=== PATIENT | female | born 2005 | race Caucasian/White ===

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

== ENCOUNTER → 2023-01-04 15:14 | Outpatient (BNVA) | payer MEDICAID, SELFPAY ==
[2021-10-31 15:38] VITALS: BP 97/46; BMI 22.7
== END ==
PROVIDERS: PCP Family Medicine Adult Medicine; Visit Provider Family Medicine Adult Medicine
DX: C71.4 Malignant neoplasm of occipital lobe (principal); C71.9 Malignant neoplasm of brain, unspecified; Z98.890 Other specified postprocedural states
CPT/HCPCS: 80053; 85025; 86360

== ENCOUNTER → 2023-02-08 14:20 | Outpatient (BNVA) | payer MEDICAID, SELFPAY ==
[2021-10-31 15:38] VITALS: BP 97/46; BMI 22.7
== END ==
PROVIDERS: PCP Family Medicine Adult Medicine; Visit Provider Family Medicine Adult Medicine
DX: R56.1 Post traumatic seizures (principal); Z98.890 Other specified postprocedural states; E10.9 Type 1 diabetes mellitus without complications
CPT/HCPCS: 80053; 85025; 86360

== ENCOUNTER → 2023-04-13 13:23 | Outpatient (BNVA) | payer MEDICAID, SELFPAY ==
[2021-10-31 15:38] VITALS: BP 97/46; BMI 22.7
== END ==
PROVIDERS: PCP Family Medicine Adult Medicine; Visit Provider Family Medicine Adult Medicine
DX: C71.4 Malignant neoplasm of occipital lobe (principal); C71.9 Malignant neoplasm of brain, unspecified
CPT/HCPCS: 80053; 85025; 86360

== ENCOUNTER → 2023-05-10 11:41 | Outpatient (BNVA) | payer SELFPAY ==
[2021-10-31 15:38] VITALS: BP 97/46; BMI 22.7
== END ==
PROVIDERS: PCP Family Medicine Adult Medicine; Visit Provider Family Medicine Adult Medicine
DX: C71.4 Malignant neoplasm of occipital lobe (principal)
CPT/HCPCS: 80053; 85025; 86360

== ENCOUNTER → 2023-08-29 13:38 | Outpatient (BNVA) | payer OTHER, SELFPAY ==
[2021-10-31 15:38] VITALS: BP 97/46; BMI 22.7
== END ==
PROVIDERS: PCP Family Medicine Adult Medicine; Visit Provider Psychiatry & Neurology Psychiatry
DX: F32.5 Major depressive disorder, single episode, in full remission (principal)
CPT/HCPCS: 80061; 83036

== ENCOUNTER 2023-11-27 20:23 | Emergency (ER) | payer MEDICAID, SELFPAY ==
[2023-09-14 16:06] VITALS: BP 105/66; BMI 29.2
[2023-11-27 20:33] VITALS: BP 104/64; PULSE 72; RESP 16; TEMP 36.7; O2SAT 98
--- NOTE | 2023-11-27 21:28 | CTR_ITS ---
PROCEDURE INFORMATION: Exam: CT Head Without Contrast Exam date and time: 11/27/2023 10:01 PM Age: 18 years old Clinical indication: Pain; Headache; Prior surgery; Surgery date: 6+ months; Surgery type: Brain; Additional info: Headache, HX of brain tumor with surgery TECHNIQUE: Imaging protocol: Computed tomography of the head without contrast. Radiation optimization: All CT scans at this facility use at least one of these dose optimization techniques: automated exposure control; mA and/or kV adjustment per patient size (includes targeted exams where dose is matched to clinical indication); or iterative reconstruction. COMPARISON: CT head wo con* [id number] 07/24/2022 10:39 PM RADIATION DOSE METRICS: Total DLP (mGy-cm): 986 FINDINGS: Brain: Left parieto-occipital craniotomy with underlying focal occipital encephalomalacia. No evidence of intra-axial or extra-axial hemorrhage. No mass effect or midline shift. Fisher-white differentiation is otherwise maintained. Basilar cisterns are patent. Cerebral ventricles: No hydrocephalus. Paranasal sinuses: The visualized paranasal sinuses are well aerated. Mastoid air cells: The visualized mastoids and middle ears are clear. Bones: Left parieto-occipital craniotomy. Calvarium is otherwise intact. No evidence of acute fracture. Soft tissues: No gross soft tissue abnormality. CT/CT head wo con* [id number] IMPRESSION: 1. No acute intracranial abnormality.
--- NOTE | 2023-11-27 21:40 | ED_ITS ---
HPI - Headache 2 General: Chief Complaint: Headache Stated Complaint: brain cancer, swelling on back and pain Time Seen by Provider: 11/27/23 21:08 History of Present Illness: Patient presents to the ER with a headache. Patient has a spot on the back of her head where they had a performed a craniotomy when she had brain surgery due to a brain tumor. The spot is usually indented and now it is protuberant. Is very tender to the touch and patient says this started yesterday. Patient also been feeling more tired than normal. Patient does not recall any type of injury. Patient has a seizure disorder and is on medication. Patient is in the observation stage. Patient's last MRI was approximately 3 months ago. Patient goes and sees the neurosurgeons in [place]. Patient has no other complaints at this time. 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, post-traumatic Intractable vomiting with nausea Insomnia Asthma Psychiatric care Premenstrual dysphoric disorder Major depressive disorder, single episode, in full remission Viral URI Trichotillomania Mild intellectual disability Surgical History Status post brain surgery 07/17/2022 at [facility] MRI showed a 5.7 x 4.4 x 5.4 excision, seizure before and after surgery 7 days, 6 wks of CCRT treatment completed Family History Grandfather Hypertension Hyperlipidemia Grandmother Diabetes Cancer Other CAD (coronary artery disease) Dementia Lung disease Social History Smoking and tobacco/nicotine status: never used tobacco/nicotine Second hand smoke exposure: Yes Alcohol intake: never Substance/Drug Use: never Adopted: No Caregiver/support person: No Lives independently: Yes Household members: family Housing: Manufactured/Mobile home Highest education level completed: 10th Grade Education level details: Homeschooled mother states she is only at the 3rd grade level service: No Current occupational status: student Current occupational exposures/hazards: No Pets and animals: Yes Pets & animals: cat(s), dog(s) and snake(s) Pets & animal details: nemesio serrano Leisure activites: art, music and other Leisure activities details: watch TV Sexually active: No Do you think of yourself as: Straight/Heterosexual Current gender identity: Female Lupe/Rastafarian: Mandaen Special lupe needs: No Agree to transfusion: Yes Physical Exam 2 Const: COMMON NORMALS: no acute distress, average body habitus, no limitations, healthy appearing, alert and well nourished HENMT: COMMON NORMALS: normocephalic; head/scalp not atraumatic (Postsurgical incision posterior scalp swollen area very tender to touch.) HEAD & SCALP: normocephalic; not atraumatic (Postsurgical incision posterior scalp swollen area very tender to touch.) Eye: COMMON NORMALS: Equal, round and reactive pupils present, EOMs intact bilaterally, conjunctivae normal and no scleral icterus CONJUNCTIVA: Yes conjunctivae normal PUPIL: Yes Equal, round and reactive pupils present Neck/C-Spine: COMMON NORMALS: full ROM, no lymphadenopathy, supple, no meningeal signs, no JVD and Thyroid normal THYROID: Thyroid normal Chest: COMMONS NORMALS: normal inspection of the chest and normal palpation of entire chest wall Resp: COMMON NORMALS: normal respiratory effort, No retractions, No use of accessory muscles and clear to auscultation bilaterally AUSCULTATION: clear to auscultation bilaterally Cardio: COMMON NORMALS: no JVD, regular rate, regular rhythm, S1 normal heart sound present, S2 normal heart sound present, No gallops present (Cardio), No clicks present (Cardio), No murmurs present (Cardio) and No rub (Cardio) R ATE: regular rate RHYTHM: regular rhythm HEART SOUNDS: S1 normal heart sound present and S2 normal heart sound present GI: COMMON NORMALS: Normal to inspection, nondistended, normoactive bowel sounds present, Soft to palpation, non-tender, No hepatosplenomegaly present and no masses PALPATION: Yes Soft to palpation and Yes No hepatosplenomegaly present Neuro: SENSORIUM/ORIENTATION: Yes alert MENINGEAL SIGNS: Yes no meningeal signs Course 2 Vital Signs: Vital signs: Vital Signs Temperature 98.0 F 11/27/23 20:33 Pulse Rate 67 07/17/24 00:01 Respiratory Rate 16 11/28/23 00:01 Blood Pressure 116/71 11/28/23 00:01 Pulse Oximetry 96 11/28/23 00:01 Oxygen Delivery Me thod Room Air 11/27/23 20:33 MDM - Headache Medical Decision Making Patient lab work included CBC CMP urinalysis CRP all which essentially benign. Patient head CT showed no acute intracranial abnormality. Patient was given 1000 g of Tylenol, and then 30 mg Toradol, for her headache which resolved. Patient will be discharged home. Medical Records I reviewed the patient's medical records. Lab Data I reviewed the patient's lab results. 11/27/23 21:42 11/27/23 21:[address] 11/27/23 21:28 IMPRESSION: 1. No acute intracranial abnormality. Laboratory Results WBC 7.87 10^3/uL (4.5-13.0) 11/27/23 21:42 RBC 3.99 10^6/uL (3.85-5.65) 11/27/23 21:42 Hgb 12.20 g/dL (12.4-14.8) L 11/27/23 21:42 Hct 36.1 % (36-47) 11/27/23 21:42 MCV 90.5 fl (85-98) 11/27/23 21:42 MCH 30.6 pg (27-33) 11/27/23 21:42 MCHC 33.8 g/dL (30-55) 11/27/23 21:42 RDW 12.3 % (12.1-15.1) 11/27/23 21:42 Plt Count 171 10^3/cmm (157-399) 11/27/23 21:42 MPV 10.4 fL (7.4-10.4) 11/27/23 21:42 Neut % (Auto) 73.6 % 11/27/23 21:42 Lymph % (Auto) 14.6 % 11/27/23 21:42 [place] % (Auto) 7.8 % 11/27/23 21:42 Eos % (Auto) 3.2 % 11/27/23 21:42 Baso % (Auto) 0.5 % 11/27/23 21:42 Neut # (Auto) 5.80 10^3/uL (1.8-8.0) 11/27/23 21:42 Lymph # (Auto) 1.2 10^3/uL (1.5-6.5) L 11/27/23 21:42 [place] # (Auto) 0.6 10^3/uL (0.2-0.9) 11/27/23 21:42 Eos # (Auto) 0.3 10^3/uL (0.0-0.8) 11/27/23 21:42 Baso # (Auto) 0.0 10^3/uL (0.0-0.1) 11/27/23 21:42 Nucleated RBC % (auto) 0 % 11/27/23 21:42 Nucleated RBCs # 0.0 /100WBC 11/27/23 21:42 Sodium 138 mmol/L (136-145) 11/27/23 21:42 Potassium 3.8 mmol/L (3.5-5.1) 11/27/23 21:42 Chloride 105 mmol/L (98-107) 11/27/23 21:42 Carbon Dioxide 22 mmol/L (22-29) 11/27/23 21:42 Anion Gap 14.8 (5-19) 11/27/23 21:42 BUN 17 mg/dL (6-20) 11/27/23 21:42 Creatinine 0.7 mg/dL (0.5-0.9) 11/27/23 21:42 GFR Calculation 106.7 mL/min (90-130) 11/27/23 21:42 Glucose 83 mg/dL (65-115) 11/27/23 21:42 Calculated Osmolality 287 mOsm/kg (285-295) 11/27/23 21:42 Calcium 8.9 mg/dL (8.5-10.5) 11/27/23 21:42 Total Bilirubin 0.2 mg/dL (0.15-1.2) 11/27/23 21:42 AST 13 U/L (0-32) 11/27/23 21:42 ALT 10 U/L (0-33) 11/27/23 21:42 Alkaline Phosphatase 81 U/L (35-105) 11/27/23 21:42 C-Reactive Protein 3.0 mg/L (0.0-4.9) 11/27/23 21:42 Total Protein 7.1 g/dL (6.6-8.7) 11/27/23 21:42 Albumin 4.0 g/dL (3.5-5.2) 11/27/23 21:42 Globulin 3.1 g/dL (1.3-4.6) 11/27/23 21:42 Urine Color Yellow (Yellow) 11/27/23 21:42 Urine Appearance Slightly cloudy (CLEAR) 11/27/23 21:42 Urine pH 8 (5-7) H 11/27/23 21:42 Ur Specific [place] 1.015 (1.005-1.030) 11/27/23 21:42 Urine Protein Neg (Negative) 11/27/23 21:42 Urine Glucose (UA) Norm (Normal) 11/27/23 21:42 Urine Ketones Negative (Negative) 11/27/23 21:42 Urine Blood Neg (Negative) 11/27/23 21:42 Urine Nitrate Negative (Negative) 11/27/23 21:42 Urine Bilirubin Neg (Negative) 11/27/23 21:42 Urine Urobilinogen Neg mg/dL (Negative) 11/27/23 21:42 Ur Leukocyte Esterase Negative (Negative) 11/27/23 21:42 Urine RBC 0-4 /hpf (0-2) H 11/27/23 21:42 Urine WBC 0-4 /hpf (0-5) H 11/27/23 21:42 Ur Squamous Epith Cells 5-10 /hpf (0-5) H 11/27/23 21:42 Amorphous Sediment Not Reportable 11/27/23 21:42 Urine Bacteria 1+ /hpf (NONE) H 11/27/23 21:42 All radiology interpretation(s) finalized by discharge Discharge Plan Discharge Patient Disposition: Home Clinical Impression: Headache Qualifiers: Headache type: unspecified Headache chronicity pattern: acute headache I ntractability: not intractable Qualified Code(s): R51.9 - Headache, unspecified Condition: Stable Prescriptions: No Action acetaminophen [Tylenol Extra Strength] 500 mg tablet 500 mg PO Q6H PRN fluticasone propionate 110 mcg/actuation HFA aerosol inhaler 2 puff inhalation BID lamotrigine 200 mg tablet 200 mg PO DAILY alprazolam [Xanax] 0.25 mg tablet 0.25 mg PO DAILY PRN (Reason: anxiety) Qty: 6 0RF Rx Instructions: Take prior to getting MRI. sertraline 100 mg tablet 150 mg PO QAM Qty: 45 11RF trazodone 100 mg tablet 200 mg PO .qhs Qty: 60 11RF diphenhydramine HCl [Benadryl] 25 mg capsule 25 mg PO TID PRN (Reason: allergic reaction) Qty: 90 2RF All Day Allergy (cetirizine) 10 mg capsule 10 mg PO DAILY Qty: 90 0RF melatonin 5 mg tablet, IR and ER, biphasic 10 mg PO .qhs PRN (Reason: insomnia) Qty: 180 1RF ondansetron 4 mg tablet,disintegrating 4 mg PO Q8H PRN (Reason: nausea and vomiting) Qty: 12 0RF ProAir HFA 90 mcg/actuation Hfa Aerosol Inhaler 2 puff INHALATION QID PRN (Reason: Shortness Of Breath) Discharge Orders: Discharge ED (Routine); Ordered 11/28/23 Ordered By: Santana Jose Referrals: Matheus Conde MD [Primary Care Provider] - 1 week Patient Instructions: Acute Headache (ED) Activity Restrictions/Additional Instructions: Your lab work as well as your head CT was essentially benign not showing any acute cause for your headache. Please follow-up with your family practice physician for further evaluation and treatment as needed. If your headache returns or worsens please feel free to return to the ER. Coding Level of Care Code ED Plumber'S Helper for Erik Garcia
[2023-11-27] MEDS: acetaminophen 500 mg Tablet 1000 MG PO (21:48)
[2023-11-27] MEDS: ondansetron 2 mg/ML SDV 2 mL 4 MG IVP (21:48)
[2023-11-27 21:50] LABS: Basophils % 0.5 %; Eosinophils # 0.3 10^3/uL (0.0-0.8); Eosinophils % 3.2 %; Hematocrit 36.1 % (36-47); Lymphocytes # 1.2 10^3/uL (1.5-6.5); Lymphocytes % 14.6 %; Mean Corpuscular HGB Conc 33.8 g/dL (30-55); Mean Corpuscular Hemoglobin 30.6 pg (27-33); Mean Corpuscular Volume 90.5 fl (85-98); Mean Platelet Volume 10.4 fL (7.4-10.4); Monocytes # 0.6 10^3/uL (0.2-0.9); Monocytes % 7.8 %; Neutrophils % 73.6 %; Nucleated Red Blood Cells % 0 %; Platelet Count 171 10^3/cmm (157-399); Red Blood Count 3.99 10^6/uL (3.85-5.65); Red Cell Distribution Width 12.3 % (12.1-15.1); White Blood Count 7.87 10^3/uL (4.5-13.0)
[2023-11-27 22:08] LABS: Alanine Aminotransferase 10 U/L (0-33); Alkaline Phosphatase 81 U/L (35-105); Anion Gap 14.8 (5-19); Aspartate Amino Transferase 13 U/L (0-32); Blood Urea Nitrogen 17 mg/dL (6-20); Calcium 8.9 mg/dL (8.5-10.5); Carbon Dioxide 22 mmol/L (22-29); Chloride 105 mmol/L (98-107); Creatinine Clr Calc Pharmacy 121.6455; Globulin 3.1 g/dL (1.3-4.6); Glomerular Filtration Rate 106.7 mL/min (90-130); Glucose 83 mg/dL (65-115); Osmolality Calculated 287 mOsm/kg (285-295); Potassium 3.8 mmol/L (3.5-5.1); Sodium 138 mmol/L (136-145); Total Bilirubin 0.2 mg/dL (0.15-1.2); Total Protein 7.1 g/dL (6.6-8.7)
[2023-11-27 22:16] LABS: Add Urine Culture? No; Add Urine Microscopic? YES; Bacteria Urine 1+ /hpf; Bilirubin Urine Neg (Negative); Blood Urine Neg (Negative); Glucose Urine UA Norm (Normal); Ketones Urine Negative (Negative); Leukocyte Esterase Urine Negative (Negative); Nitrate Urine Negative (Negative); Protein Urine Neg (Negative); RBC Urine 0-4 /hpf (0-2); Specific Gravity, Urine 1.015 (1.005-1.030); Urine Appearance Slightly Cloudy (CLEAR); Urine Color Yellow (Yellow); Urobilinogen Urine Neg (Negative); WBC Urine 0-4 /hpf (0-5); pH Urine 8 (5-7)
[2023-11-27 22:26] VITALS: BP 102/61; PULSE 61; RESP 16; O2SAT 96
[2023-11-27 23:00] VITALS: BP 110/64; PULSE 65; RESP 16; O2SAT 95
[2023-11-27] MEDS: ketorolac 30 mg/mL INJ IVP (23:18)
[2023-11-27 23:30] VITALS: BP 115/63; PULSE 59; RESP 16; O2SAT 95
[2023-11-28 00:01] VITALS: BP 116/71; PULSE 67; RESP 16; O2SAT 96
== END 2023-11-28 01:09 | disposition home or self-care (01) ==
PROVIDERS: Emergency Provider Emergency Medicine; PCP Family Medicine Adult Medicine
DX: R51.9 Headache, unspecified (principal); Z79.899 Other long term (current) drug therapy
CPT/HCPCS: 70450; 80053; 81001; 85025; 86140; 96374; 96375; 99285; J1885; J2405

== ENCOUNTER 2024-07-26 16:54 | Emergency (ER) | payer OTHER, SELFPAY ==
[2023-09-14 16:06] VITALS: BP 105/66; BMI 29.2
[2024-07-26 17:07] VITALS: BP 101/59; PULSE 73; RESP 18; TEMP 36.7; O2SAT 98
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
[2024-07-26 18:55] LABS: Bilirubin Urine Negative (Negative); Blood Urine Negative (Negative); Glucose Urine UA Negative (Normal); Ketones Urine Negative (Negative); Leukocyte Esterase Urine Negative (Negative); Nitrate Urine Negative (Negative); Protein Urine Negative (Negative); Urine Appearance Clear (CLEAR); Urine Color Yellow (Yellow)
[2024-07-26 19:00] LABS: Add Urine Microscopic? YES; Bacteria Urine 2+ /hpf; RBC Urine 0-2 /hpf (0-2); Squamous Epithelial Cell Urine 0-5 /hpf (0-5); WBC Urine 0-5 /hpf (0-5)
[2024-07-26 20:42] VITALS: PULSE 72; O2SAT 97
== END 2024-07-26 20:43 | disposition home or self-care (01) ==
PROVIDERS: Emergency Provider Nurse Practitioner; PCP Family Medicine Adult Medicine
DX: S06.0X0A Concussion without loss of consciousness, initial encounter (principal); V89.2XXA Person injured in unspecified motor-vehicle accident, traffic, initial encounter; M25.531 Pain in right wrist; M54.2 Cervicalgia
CPT/HCPCS: 70450; 71046; 72125; 73110; 81001; 99284